=== PATIENT | male | born 1970 | race Caucasian/White ===

== ENCOUNTER 2016-12-22 09:40 | Emergency (ER) | payer OTHER ==
[~2016-12-22] VITALS: Ht 182.9 cm; Wt 92.5 kg
[2016-12-22 09:46] VITALS: BP 140/112; PULSE 83; RESP 16; TEMP 98.3; O2SAT 98
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
[2016-12-22] MEDS ORDERED: META800T81 PO (11:15)
[2016-12-22 11:24] VITALS: BP 140/93
== END 2016-12-22 11:27 | disposition home or self-care (01) ==
LOC: PHED 09:40
DX: S16.1XXA Strain of muscle, fascia and tendon at neck level, initial encounter (principal); V85.9XXA Unspecified occupant of special construction vehicle injured in nontraffic accident, initial encounter; Y93.9 Activity, unspecified; Y92.9 Unspecified place or not applicable; Y99.9 Unspecified external cause status
CPT/HCPCS: 72125